=== PATIENT | male | born 1970 | race Caucasian/White ===

== ENCOUNTER → 2016-05-08 | Outpatient (CLI) | payer BC ==
[~2016-05-08] MED LIST: NORCO 5-325 TA1 EACH PO; ULTRAM50 MG PO
== END | disposition disaster alternative care site (69) ==
LOC: GRAD 07:07
DX: R51 Headache (principal); M89.9 Disorder of bone, unspecified

== ENCOUNTER → 2016-05-10 | Outpatient (CLI) | payer BC | END | disposition disaster alternative care site (69) | LOC: GRAD 10:39 | DX: R93.0 Abnormal findings on diagnostic imaging of skull and head, not elsewhere classified (principal); M89.9 Disorder of bone, unspecified | CPT/HCPCS: A9503 ==

== ENCOUNTER 2016-05-17 08:05 | Inpatient (IN) | payer BC ==
[~2016-05-17] VITALS: Ht 162.6 cm; Wt 81.1 kg
--- NOTE | ~2016-05-17 | DS ---
PATIENT'S NAME: DEXTER RUBIO [facility] AGE: 46 Y [address] ROOM: [address] [address] LOCATION: [facility] ADMIT DATE: 05/17/2016 Discharge Summary DISCHARGE DATE: 05/21/2016 FAMILY PHYSICIAN: Aguilar Izaguirre MD ATTENDING PHYSICIAN: Stacey Ricardo REASON FOR ADMISSION: The patient was a scheduled admission for an elective procedure. He had presented with pain on the right-side of his skull and imaging studies showed a right skull mass. TREATMENT RENDERED: The patient was taken to the operating room on May 17, 2016. He had a right frontal craniotomy and removal of the skull mass. He also had a cranioplasty to cover the area of the skull mass removal. Postoperatively, he complained of some numbness in the middle of his head and some generalized pain around the incision, but the incision was looking good and was healing satisfactorily. The patient's pain was eventually controlled to the point where he could be discharged. He was discharged on May 21, 2016. He has since been seen in the clinic and noted to be doing well. 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 The patient has been referred to Oncology for recommendations on further treatment. 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 Status post craniotomy and resection. MD AZUL MILLERO/johnl /[id number] d: 06/16/16 0246 t: 06/16/162000, DISCHARGE SUMMARY
--- NOTE | ~2016-05-17 | OR ---
PATIENT'S NAME: DEXTER RUBIO [facility] AGE: 46 Y [address] ROOM: [address] [address] LOCATION: [facility] ADMIT DATE: 05/17/2016 OR/Procedure Report DISCHARGE DATE: FAMILY PHYSICIAN: Aguilar Izaguirre MD ATTENDING PHYSICIAN: Stacey Ricardo SURGEON: Stacey Ricardo MD GROMMET WORKER: Denys Matos CST. DATE OF PROCEDURE: 05/17/2016 PREOPERATIVE DIAGNOSIS: Right skull mass. POSTOPERATIVE DIAGNOSIS: Right skull mass. PROCEDURE PERFORMED: 1. Right frontal craniotomy and removal of skull mass. 2. Right frontal cranioplasty approximately 5 cm in diameter. ANESTHESIA: General. HISTORY: The patient is a 46-year-old gentleman, who presented with pain on the right side of his forehead just behind the hairline. On examination, the area was slightly raised and was tender to palpation. MRI scan showed a lesion in the diploe of the skull with differential diagnosis of eosinophilic granuloma or metastatic tumor. Surgery was recommended to provide definitive diagnosis and to help treatment planning. The above procedure along with the benefits and risks were discussed with the patient, and with his consent, he was brought to the operating room for surgery. PROCEDURE IN DETAIL: In the operating room, the patient was placed in a supine position. His head was placed on a gel roll. The hair on the right side of his head was clipped. The incision line was marked out behind the right frontal hairline. The whole area was prepped and draped in a sterile fashion. Local anesthesia was infiltrated. A #10 blade was used to open the incision. The Bovie was used to deepen the incision. The scalp flap was peeled back, the skull was exposed. A craniotomy was performed with the lesion in the center of the craniotomy, ensuring that there was enough clear margin to normal skull. The specimen was sent, frozen section was performed, and the preliminary impression was not malignant. We then prepared the cranioplasty material, and when it was ready, we trimmed it to match the craniotomy defect. The cranioplasty was then placed over the craniotomy defect. Sutures were used to suture the cranioplasty onto the edges of the skull. PATIENT'S NAME: DEXTER RUBIO [facility] AGE: 46 Y [address] ROOM: [address] [address] LOCATION: [facility] ADMIT DATE: 05/17/2016 OR/Procedure Report DISCHARGE DATE: FAMILY PHYSICIAN: Aguilar Izaguirre MD ATTENDING PHYSICIAN: Stacey Ricardo The incision was then closed using appropriate suture materials. A sterile dressing was applied. The patient's anesthesia was reversed. He was extubated and taken to the recovery room to complete his recovery. I was present at and performed every aspect of this procedure, assisted at some stages by the operating room nurses. There were no apparent intraoperative complications. Swabs, needles, and instruments were all accounted for at the end of the case. Estimated blood loss was less than 50 mL and there was no reason for intraoperative transfusion. The patient's diagnosis is still uncertain at this time, but it is encouraging that the initial report said no tumor seen. He will be followed up in the clinic with a final diagnosis at that time. MD AZUL MILLERO/modl /[id number] d: 05/21/16131 t: 05/31/16 09, OPERATIVE SUMMARY
--- NOTE | 2016-05-17 17:01 | NUR ---
Significant Event: Patient up from PACU at 1250. Patient alert and oriented x3. VSS, on 2L O2. Pupils 3mm, brisk. Patient does report some numbness around incisional site. Grasps strong and equal throughout. Blurry vision reported to R) eye, getting better as per patient. Island drsg x2 to frontal R) head. Changed drsg due to bloody drainage. Holdrege and morphine given for pain. IV to L) FA, saline locked. IV to R) hand, saline locked. Follow up: VS/neuros q 4 hours. Up with 1PA. Regular diet. Home tomorrow?
--- NOTE | 2016-05-18 01:31 | NUR ---
Significant Event: A&Ox3. Has some blurry vision to eyes on PRN eye drops that pt states help some. Has numbness around incision site. Equal strength throughout. Up SBA. VSS. RA lungs clear sats mid 90s. Regular diet. Island drsg to head c/d/i. IV to R) hand SL. IV to L) forearm SL. Brilliant given for pain throughout the night. Follow up: Possible discharge today.
--- NOTE | 2016-05-18 17:15 | NUR ---
Significant Event: PATIENT A/O X 3. SINUS LM. ROOM AIR. REGULAR DIET. AMBULATES IN ROOM AND HALLWAY WITH FAMILY ASSIST. INCREASED SWELLING AROUND INCISION SITE. DRESSING DRY AND INTACT. WAS SUPPOSED TO DISCHARGE TO HOME TODAY BUT WAS HAVING TOO MUCH PAIN. LAST NORCO GIVEN AT 1400. LAST MORPHINE GIVEN AT 1240. Follow up: POSSIBLE DISCHARGE TOMORROW. INSURANCE HAS APPROVED HOSPITAL STAY UNTIL 05/21/16.
--- NOTE | 2016-05-19 04:19 | NUR ---
Significant Event: The patient is Alert and Oriented x3. Denies Numbness and Tingling to his extremities, but has it at the incision site. Moves all extremities spontaneously and to command. Up Independently. VSS. On room air. Dressing to the Right side of his head c/d/i. Strong and equal strength. Pain to the right side of his head, gave [facility] last at 0245, and Morphine last at 0320. PIV to his right hand and left wrist saline locked. Edema noted to the right face and eye. Follow up:
--- NOTE | 2016-05-19 16:38 | NUR ---
Significant Event: PATIENT A/O X 3. GRASPS EQUAL AND STRONG. SINUS LM. ROOM AIR. N/T TO INCISION SITE. EDEMA TO R) EYE. ISLAND DRESSING X2 DRY AND INTACT. MORPHINE DISCONTINUED, VALIUM STARTED Q8H. PATIENT AMBULATES INDEPENDENTLY AND FREQUENTLY IN HALLWAY. IV L) WRIST AND R) HAND SALINE LOCKED. Follow up: [facility] TO REASSESS FRIDAY.
--- NOTE | 2016-05-20 04:01 | NUR ---
Significant Event: The patient is Alert and oriented x3. Numbness and tingling to the Right side of his head, No other N/T noted. He is up Independently. Moves all extremities spontaneously and to command, strong and equal strength. Denies blurred or double vision. PIV to the Left wrist and Right hand saline locked. VSS. On room air. Pain to the right side of his head gave Valium at 2230, and norco last at 0226. Dressing to the right side of his head is Dry and intact, with shadow drainage noted. Swelling to the right side of his head and to his right eye, his right eye is also bruised. Follow up: home today? pain control!
--- NOTE | 2016-05-20 17:37 | NUR ---
Significant Event: a/o x 3. pain to right side of head, surgical site and right eye/jewish area. edema and bruising to right eye/jewish area. up ad sebastien. takes meds whole. regular diet. Numbness/tingling to right side of face. dsg to right side of head surgical site dry/intact with a small amount of shadow bloody drainage. PRN norco and scheduled valium for pain management. patient states pain not at a tolerable level with this regimine. Dr. Ricardo updated with no new orders- will address when he rounds. Possible discharge to home today.
--- NOTE | 2016-05-21 01:32 | NUR ---
Significant Event: Patient A/O x 3. Perrla. Numbness to top of head. Pain to incisional area on right side of head, dressing changed to mepilex this shift per Dr. Ricardo. Ultram added for pain control this shift, relief noted. Moves all extremities spontaneously and to command, equal strength throughout. Up ad sebastien, denies dizziness while ambulating. Edema to right eye. Lungs clear on room air. Bowels active. Follow up: CT of head this am. Home after, if not significant findings.
[2016-05-21] MEDS ORDERED: ULTRAM50 MG PO (09:45)
[2016-05-21] MEDS ORDERED: NORCO 5-325 TA1 EACH PO (09:50)
--- NOTE | 2016-05-21 11:46 | NUR ---
Significant Event:PT DC IV. AMBULATED IN [place]. PAIN CONTROLLED. DISMISSED HOME Follow up:
== END 2016-05-21 10:57 | disposition disaster alternative care site (69) | DRG 479 ==
LOC: GNTU 08:05 → GSDC 08:05 → GNTU 08:08 → GSDC 12:51 → GNTU 12:51 → GSDC 13:00 → GNTU 05-21 10:57
PROVIDERS: ADMIT Neurological Surgery
DX: M89.9 Disorder of bone, unspecified (principal)
CPT/HCPCS: J0690; J1100; J2250; J2270; J2405; J3010; J7030; J7120

== ENCOUNTER → 2016-06-13 | Outpatient (CLI) | payer BC | END | disposition disaster alternative care site (69) | LOC: GRAD 13:00 | DX: C96.5 Multifocal and unisystemic Langerhans-cell histiocytosis (principal); Z98.890 Other specified postprocedural states ==